=== PATIENT | female | born 1975 | race American Indian/Alaskan Native ===

== ENCOUNTER 2017-09-16 08:52 | Outpatient (CLI) | payer OTHER ==
--- NOTE | 2017-09-16 09:27 | XRay Report ---
RIGHT HIP, 2 views: History: Trochanteric bursitis, right hip The bony architecture is intact without evidence of fracture or dislocation. No significant soft tissue abnormality is seen. IMPRESSION: Normal right hip.
== END 2017-09-16 08:53 | disposition home or self-care (01) ==
LOC: XRAY 08:52
PROVIDERS: ATTEND Internal Medicine
DX: M70.61 Trochanteric bursitis, right hip (principal)